=== PATIENT | female | born 1995 | race Asian ===

== ENCOUNTER 2016-05-09 17:05 | Emergency (ER) | payer OTHER ==
[2016-05-09 17:08] VITALS: TEMP 36.9
--- NOTE | 2016-05-09 17:23 | EMERGENCY ROOM VISIT NOTE ---
History First contact with patient: 17:11 Chief Complaint: TEST REQUEST Stated Complaint: TEST History of Present Illness The patient is a 21 year old female who presents to the Emergency Room requesting a test. The patient reports that she is concerned she may be . Her last menstrual period was 03/30/16. She is sexually active and states that she uses condoms for protection. She does state that her periods are sometimes irregular. She denies any abdominal pain, nausea, vomiting, fatigue or vaginal bleeding/discharge. She denies previous pregnancies. Review of Systems A complete 10-point Review of Systems was discussed with the patient, with pertinent positives and negatives listed in the History of Present Illness. All remaining Review of Systems questions can be considered negative unless otherwise specified. Social History Smoking Status: Current Every Day Smoker Current/Historical Medications No Active Prescriptions or Reported Meds Allergies Coded Allergies: No Known Allergies (Unverified , 05/09/16) Physical Exam Vital Signs Date Time Temp Pulse Resp B/P Pulse Ox O2 Delivery O2 Flow Rate FiO2 05/09/16 19:00 79 18 104/77 98 05/09/16 17:08 36.9 70 16 111/70 98 Room Air Physical Exam VITALS: Vitals are noted on the nurse's note and reviewed by myself. Vital signs stable. GENERAL: This is a 21-year-old female, in no acute distress, nondiaphoretic, well-developed well-nourished. SKIN: Capillary reflex less than 2 seconds. HEENT: Normocephalic. PERRLA. EOMI. Nares patent. Mucous membranes moist. Neck is supple without nuchal rigidity. HEART: Regular rate and rhythm without murmurs gallops or rubs. LUNGS: Clear to auscultation bilaterally without wheezes, rales or rhonchi. ABDOMEN: Positive bowel sounds x 4. Soft, nontender to palpation. NEURO: Patient was alert and oriented to person place and time. Medical Decision & Procedures Laboratory Results Test 05/09/16 17:21 05/09/16 17:45 Urine Test NEG (NEG) Human Chorionic Gonadotropin, Qual NEG (NEG) Medical Decision The patient was evaluated as above. A urine test was initially performed and was negative. The patient then informed me that she had actually taken a urine test at home which was apparently positive. At that time, a serum was performed and was also negative. The patient was informed that she is not likely to be . She was instructed to follow- up with [facility] services as needed for further evaluation. She verbalized understanding of my assessment and treatment plan and was discharged home in a good condition. Impression Primary Impression: Possible Departure Information Dispostion Home / Self-Care Condition GOOD Prescriptions No Active Prescriptions or Reported Meds Referrals No Doctor, Assigned (PCP) [facility] Patient Instructions My [facility] Additional Instructions Follow-up with [facility] services as needed.
[2016-05-09 18:21] LABS: PREG INTERNAL NEGATIVE QC NEG CLEAR BACKGROUND; PREG INTERNAL POSITIVE QC POS CONTROL LINE
[2016-05-09 19:00] VITALS: BP 104/77; PULSE 79; O2SAT 98
== END 2016-05-09 19:00 | disposition home or self-care (01) ==
LOC: C.EDB 17:06 → C.EDD 19:00
DX: Z32.02 Encounter for pregnancy test, result negative (principal); F17.200 Nicotine dependence, unspecified, uncomplicated